=== PATIENT | female | born 1985 | race Caucasian/White ===

== ENCOUNTER 2022-07-15 20:56 | Emergency (ER) | payer MEDICAID ==
--- NOTE | 2022-07-15 21:47 | NUR ---
CALLED TO TRIAGE, NOT IN WAITING ROOM
--- NOTE | 2022-07-15 22:02 | NUR ---
CALLED TO TRIAGE, NO RESPONSE
== END 2022-07-15 22:02 | disposition home or self-care (01) ==
LOC: ER 21:04
DX: Z53.21 Procedure and treatment not carried out due to patient leaving prior to being seen by health care provider (principal)